=== PATIENT | female | born 2005 | race Caucasian/White ===

== ENCOUNTER 2023-04-17 00:26 | Emergency (ER) | payer MEDICAID ==
[~2023-04-17] VITALS: Ht 170.2 cm; Wt 105.9 kg
[2023-04-17 01:05] VITALS: BP 139/94; PULSE 81; RESP 16; TEMP 98.6; O2SAT 100
[2023-04-17] MEDS ORDERED: IBUP-2028 MT (02:17)
== END 2023-04-17 19:12 | disposition home or self-care (01) ==
LOC: ER 00:26
DX: R07.89 Other chest pain (principal)
CPT/HCPCS: 71046; 93005; 99283

== ENCOUNTER 2025-06-11 16:28 | Emergency (ER) | payer OTHER, MEDICAID ==
[~2025-06-11] VITALS: Ht 165.1 cm; Wt 99.0 kg
[~2025-06-11 16:28] MED LIST: IBUP-2028 MT
[2025-06-11 16:42] VITALS: O2SAT 97
[2025-06-11 18:02] LABS: BASOPHILS % 0.4 % (0.0-2.0); EOSINOPHILS % 0.5 % (0.0-5.0); HEMATOCRIT. 41.4 % (36.0-48.0); HEMOGLOBIN. 14.0 g/dL (12.0-16.0); LYMPHOCYTES % 15.2 % (20.0-50.0); MEAN PLATELET VOLUME 7.6 fl (7.4-10.4); MONOCYTES % 4.9 % (2.0-8.0); NEUTROPHILS % 79.0 % (40.0-76.0); PLATELET 388 x1000/uL (130-400); RED BLOOD CELL COUNT 4.92 mill/uL (4.2-5.4); RED CELL DISTRIBUTION WIDTH 12.7 % (11.6-14.6)
[2025-06-11 18:36] LABS: CREATININE 0.8 mg/dL (0.6-1.0); TROPONIN I HIGH SENSITIVITY < 4 ng/L (3.0-34); UREA NITROGEN BLOOD 12 mg/dL (9-23)
[2025-06-11] MEDS ORDERED: IBUP-1455 MT (20:04)
[2025-06-11] MEDS: IBUPROFEN 600MG TABLET PO ONE (20:21)
[2025-06-11 20:23] VITALS: BP 130/95; PULSE 75; RESP 15; TEMP 37.1; O2SAT 99
== END 2025-06-11 20:23 | disposition home or self-care (01) ==
LOC: ER 16:28
DX: R07.89 Other chest pain (principal); F41.9 Anxiety disorder, unspecified; M54.50 Low back pain, unspecified; M79.652 Pain in left thigh; R51.9 Headache, unspecified; V43.52XA Car driver injured in collision with other type car in traffic accident, initial encounter; Y93.89 Activity, other specified; Y92.410 Unspecified street and highway as the place of occurrence of the external cause; Y99.8 Other external cause status
CPT/HCPCS: 36415; 71045; 80048; 84484; 85025; 93005; 99285